=== PATIENT | male | born 2000 | race Caucasian/White ===

== ENCOUNTER 2018-03-04 14:40 | Emergency (ER) | payer OTHER ==
[2018-03-04 14:47] VITALS: BP 123/73
--- NOTE | 2018-03-04 15:57 | EDPHY ---
General - History Smoking Status: Never smoked Time Seen by Provider: 03/04/18 15:45 Narrative: CHIEF COMPLAINT: Loss of consciousness, chin laceration HISTORY OF PRESENT ILLNESS: Patient presents with complaints of laceration after falling during syncope. He reports fasting over night into this afternoon for a blood draw that was performed outpatient. This was in anticipation of starting Accutane for acne. After having the blood drawn he walked [place] the food court where he lost consciousness. He does not know what happened. He felt lightheaded prior to waking up on the floor. He woke with people assisting him and blood from the chin. He says he has minimal pain from the laceration. He has no headache. No neck pain. No chest pain, shortness of breath, abdominal pain, back pain or injury to the extremities. He did feel somewhat lightheaded after he awoke per feels much better after eating some snacks. He 1st went to [facility] at , with a updated his tetanus status and sent him to our facility for higher level of care due to suspected complex laceration he is feeling significantly better at this time. He reports previous history of syncope with cardiac workups that were reportedly negative. No other associated complaints or modifying factors. REVIEW OF SYSTEMS: Ten systems reviewed and are negative unless otherwise noted in the HPI PCP: [place] SPECIALISTS: None PAST MEDICAL HISTORY: Syncope, pectus excavatum PAST SURGICAL HISTORY: Raghav procedure SOCIAL HISTORY: Nonsmoker. [employer] student. Originally from [place] FAMILY HISTORY: Noncontributory EXAMINATION General Appearance: Alert, no distress Head: normocephalic, atraumatic. No Franco sign. No raccoon eyes. Chin laceration as below Eyes: Pupils equal and round, no conjunctival pallor or injection. No nystagmus. No dysconjugate gaze. No ENT, Mouth: Mucous membranes moist. Airway widely patent. Partially fracture tooth 17 anterior surface. Airway widely patent. Neck: Normal inspection, supple, non-tender. No crepitus, step-off or deformity. Respiratory: Lungs are clear to auscultation Cardiovascular: Regular rate and rhythm. No murmur. Symmetric radial pulses 2 +. Gastrointestinal: Abdomen is soft and nontender Back: non-tender, no bony abnormalities Neurological: GCS 15. Cranial nerves 2-12 grossly intact. A&O, nonfocal, normal steady gait. No pronator drift. Normal [id number]. Skin: Warm and dry, no rash. 3 cm laceration to the chin, submental. There is exposure of subcutaneous tissue but not of the muscle. No foreign body. No bleeding. Extremities: Nontender, no pedal edema. Symmetric range of motion. Psychiatric: Mood and affect normal DIFFERENTIAL DIAGNOSES: Including but not limited to chin laceration, laceration complication, laceration with foreign body, syncope, vasovagal, hypoglycemia, intracranial hemorrhage, concussion, basilar skull fracture MDM: 3:50 p.m. Loss of consciousness with chin laceration but no signs of basilar skull fracture. His neuro exam is within normal limits. He has not vomited. He has no visual disturbance. No headache. No neck pain or stiffness. He feels this was due to hypoglycemia and potentially response to the blood draw. He is feeling much better after eating something after this. I have discussed with Dr. Moreno. We will obtain an EKG and fingerstick blood sugar. I will anesthetize the wound and proceed with irrigation closure. Tetanus is updated today. 4:50 p.m. Laceration has been repaired, 2 layer repair with excellent approximation of the wound borders. He remains awake alert no acute distress. We are currently ambulating to make sure that he is comfortable and steady. We discussed daily wound care. We discussed the absorbable sutures and the external sutures. He will need to return here in 5-7 days for suture removed. I recommend 7 given the complexity of the laceration. We discussed ED precautions, signs of infection to watch for and head injury precautions. We also discussed my recommendation that he contact his primary care physician due to the syncope. It is likely this was due to hypoglycemia and vasovagal after blood draw, but he should follow up appropriately. ED precautions for return of loss of consciousness, any chest pain, shortness of breath, lightheadedness. He is comfortable this plan and discharged home stable condition. PROCEDURE: Laceration repair Consent: Verbal Location: Chin, right of midline and centrally Length of repair: 3 cm Complexity: Complex Layer involvement: 2 layer Anesthesia: Local. 0.5% Marcaine, 7 mL Irrigation: Extensive Debridement: Minimal Procedure description: Following good anesthesia, the wound was copiously irrigated. Wound bed was explored with a sterile glove, and there is no foreign body noted. There was jagged appearance of the wound borders, thus I performed some excisional debridement. Wound borders were approximated well with good hemostasis. Tolerated well without complication. Suture/Staple material: Subcutaneous layer: 5-0 Vicryl, 6 running sutures. Cutaneous layer: 6-0 Prolene, 7 simple interrupted sutures Wound care: Routine as discussed Suture/Staple removal: 7 Days SUPERVISION: Patient was independently examined, but I discussed the case with my secondary supervising physician Dr. Moreno ([facility]) EKG time is 4:08 p.m.; EKG shows a narrow complex normal sinus rhythm with borderline right axis deviation and with a ventricular rate of 67. Probable early repolarization pattern. The AK, QRS, QT intervals are within normal limits. There are no ST-T wave changes indicative of ischemic or injury pattern. No evidence of right heart strain. No evidence of WPW, Brugada syndrome, hypertrophic cardiomyopathy. Interpreted by me. (Desiree Moreno) - Objective Vital Signs: Initial Vital Signs Temperature (C) 36.6 C 03/04/18 14:43 Heart Rate 82 03/04/18 14:43 Respiratory Rate 18 03/04/18 14:43 Blood Pressure 123/73 H 03/04/18 14:43 O2 Sat (%) 98 03/04/18 14:43 O2 Delivery Mode Room Air Allergies/Adverse Reactions: amoxicillin Allergy (Verified 03/04/18 14:43) Home Medications: Medication Instructions Recorded NK [No Known Home Meds] 03/04/18 Laboratory Results: 03/04/18 16:05 POC Glucose 85 mg/dL mg/dL (70-100) Point of Care Test Results: 03/04/18 16:05 POC Glucose 85 Departure - Departure Disposition: Home, Routine, Self-Care Clinical Impression: Vasovagal attack Chin laceration Qualifiers: Encounter type: initial encounter Qualified Code(s): S01.81XA - Laceration without foreign body of other part of head, initial encounter Syncope Qualifiers: Syncope type: unspecified Qualified Code(s): R55 - Syncope and collapse Condition: Good Instructions: Care For Your Stitches (ED), Laceration (ED), Syncope (ED), Care For Your Absorbable Stitches (ED) Additional Instructions: 1. Daily wound care with bacitracin and antibacterial wash 2. Do not submerge the sutures under any water 3. Keep the wound covered when you shower for the 1st 3 days 4. ED precautions for signs of infection 5. ED precautions for subsequent loss of consciousness, headache, chest pain, lightheaded, shortness of breath 6. Follow up with primary care physician 7. You will need to return here in 7 days to have year sutures removed. He did not need an appointment Referrals: JOSEPH Narayanan,. [Clinic] - As per Instructions Physician,Emergency Dept, [Medical Doctor] - As per Instructions (7 days for suture removal)
--- NOTE | 2018-03-05 09:30 | CPEKG ---
Heart Rate: 67 RR Interval: 896 P-R Interval: 144 QRSD Interval: 88 QT Interval: 372 QTC Interval: 393 P [place]: 46 QRS [place]: 90 T Wave [place]: 50 EKG Severity - BORDERLINE ECG - EKG Impression: SINUS RHYTHM EKG Impression: PROBABLE LEFT ATRIAL ABNORMALITY EKG Impression: BORDERLINE RIGHT AXIS DEVIATION EKG Impression: ST ELEV, PROBABLE NORMAL EARLY REPOL PATTERN Electronically Signed By: Keyona Pisano 05-Mar-2018 17:01:03
== END 2018-03-04 17:12 | disposition home or self-care (01) ==
LOC: EDSEX 14:40
PROC: 0HQ1XZZ Repair Face Skin, External Approach (ICD-10-PCS; principal; 2018-03-04)
DX: S01.81XA Laceration without foreign body of other part of head, initial encounter (principal); R55 Syncope and collapse; W19.XXXA Unspecified fall, initial encounter; Y99.8 Other external cause status; Y93.01 Activity, walking, marching and hiking